=== PATIENT | male | born 1995 | race Two or more races ===

== ENCOUNTER 2017-01-20 03:04 | Emergency (ER) | payer SELFPAY ==
[~2017-01-20] VITALS: Ht 167.6 cm; Wt 90.7 kg
[2017-01-20] MEDS ORDERED: SODIUM CHLORIDE 0.9% 1,000 ML IVB ONE (03:39)
[2017-01-20 03:53] LABS: Basophils # (auto) 0.1 uL; Basophils % (auto) 0.5 % (0.0-2.0); CONDITION Y; Eosinophils # (auto) 0 uL; Eosinophils % (auto) 0.1 % (0.0-7.0); Hematocrit 45.3 % (41.0-53.0); Hemoglobin 15.7 g/dL (13.5-17.5); Lymphocytes % (auto) 15.9 % (10.0-50.0); Mean Corpuscular Hemoglobin 30.8 pg (28.0-32.0); Mean Corpuscular Hgb Conc. 34.6 g/dL (32.0-36.0); Mean Corpuscular Volume 89.1 fL (80.0-100.0); Mean Platelet Volume 7.6 fL (7.4-10.4); Monocytes # (auto) 0.6 uL; Monocytes % (auto) 4.5 % (0.0-12.0); Platelet Count (auto) 321 10^3/uL (140-450); Red Cell Distribution Width 12.9 % (11.6-16.0); White Blood Cell 12.7 10^3/uL (4.4-10.8)
[2017-01-20 04:07] LABS: Albumin 4.3 g/dL (3.4-5.0); BUN/Creatinine Ratio 14.6; Calcium 8.3 mg/dL (8.5-10.1); Potassium 3.4 mmol/L (3.5-5.1); Salicylate < 1.7 mg/dL (2.8-20.0)
[2017-01-20 04:08] LABS: Bilirubin, Total 0.4 mg/dL (0.2-1.0); Total Protein 7.9 g/dL (6.4-8.2)
[2017-01-20 04:12] LABS: Acetaminophen < 2.0 ug/mL (10-30)
[2017-01-20 04:25] LABS: Urine Bilirubin Negative (Negative); Urine Blood TRACE /uL (Negative); Urine Color Colorless (Yellow); Urine Glucose Normal (Normal); Urine Ketone Negative (Negative); Urine Nitrite Negative (Negative); Urine RBC 1 /hpf (0 - 3); Urine Urobilinogen Normal (Negative)
[2017-01-20 07:46] VITALS: BP 127/77
== END 2017-01-20 09:23 | disposition home or self-care (01) ==
LOC: EDBD 03:04 → ER 03:05
DX: F10.120 Alcohol abuse with intoxication, uncomplicated (principal)
CPT/HCPCS: 36415; 70450; 80053; 80307; 80320; 80329; 81001; 82962; 85025; 96360

== ENCOUNTER 2018-03-11 10:47 | Emergency (ER) | payer SELFPAY ==
[~2018-03-11] VITALS: Ht 177.8 cm; Wt 86.2 kg
[2018-03-11 11:00] VITALS: BP 106/59
[2018-03-11 12:03] LABS: Alcohol, Urine < 3.0 mg/dL (0-5); Amphetamine Screen, Urine NEGATIVE (NEGATIVE); Barbiturate Scree,Urine NEGATIVE (NEGATIVE); Benzodiazephine Screen, Urine NEGATIVE (NEGATIVE); Cannabinoid Screen, Urine POSITIVE (NEGATIVE); Cocaine Screen, Urine NEGATIVE (NEGATIVE); Opiate Scree,Urine NEGATIVE (NEGATIVE); Phencyclidine Screen, Urine NEGATIVE (NEGATIVE)
== END 2018-03-11 12:09 | disposition home or self-care (01) ==
LOC: ER 10:47
DX: F41.9 Anxiety disorder, unspecified (principal)
CPT/HCPCS: 80307

== ENCOUNTER 2019-03-09 19:56 | Emergency (ER) | payer MEDICAID ==
[~2019-03-09] VITALS: Ht 177.8 cm; Wt 99.8 kg
[2019-03-09 20:02] VITALS: BP 139/73
[2019-03-09] MEDS ORDERED: IOHEXOL 300 MG/ML 100ML BOTTLE IJ ONE (20:12)
[2019-03-09] MEDS ORDERED: fentaNYL CITRATE 100 MCG/2 ML VL IV ONE (20:15)
[2019-03-09 20:45] LABS: Basophils # (auto) 0.2 uL; Eosinophils # (auto) 0.3 uL; Hemoglobin 16.4 g/dL (13.5-17.5); Lymphocytes # (auto) 8.1 uL; Lymphocytes % (auto) 49.3 % (10.0-50.0); Mean Corpuscular Hemoglobin 30.5 pg (28.0-32.0); Mean Corpuscular Hgb Conc. 32.7 g/dL (32.0-36.0); Mean Corpuscular Volume 93.2 fL (80.0-100.0); Monocytes # (auto) 1.2 uL; Neutrophils # (auto) 6.7 uL; Neutrophils % (auto) 40.7 % (37.0-80.0); Nucleated Red Blood Cells % 0.1 %; Platelet Count (auto) 361 10^3/uL (140-450); Red Blood Cells 5.36 10^6/uL (4.5-5.90); Red Cell Distribution Width 13.5 % (11.8-14.3); White Blood Cell 16.5 10^3/uL (4.4-10.8)
[2019-03-09 20:47] LABS: INR 0.95 (0.9-1.15); Partial Thromboplastin Time 24.7 sec (23.64-32.05)
[2019-03-09 20:52] LABS: Anion Gap 32 (5-15); Blood Urea Nitrogen 14 mg/dL (7-18); Calcium 9.3 mg/dL (8.5-10.1); Chloride 103 mmol/L (98-107); Glucose 163 mg/dL (74-106); Sodium 142 mmol/L (136-145)
[2019-03-09 20:56] LABS: Alanine Aminotransferase 75 U/L (16-61); Alkaline Phosphatase 80 U/L (45-117); Aspartate Aminotransferase 35 U/L (15-37); BUN/Creatinine Ratio 9.7; Bilirubin, Total 0.5 mg/dL (0.2-1.0); GFR African American 76 mL/min; GFR Non-African American 63 mL/min; Total Protein 8.8 g/dL (6.4-8.2)
[2019-03-09 21:10] LABS: Blood Alcohol < 3.0 mg/dL (0-5)
[2019-03-09 21:12] LABS: Carbon Dioxide 7 mmol/L (21-32)
[2019-03-09] MEDS ORDERED: SODIUM CHLORIDE 0.9% 1,000 ML IV ONE (21:30)
[2019-03-09 22:22] LABS: Calcium 8.6 mg/dL (8.5-10.1); Potassium 3.9 mmol/L (3.5-5.1)
[2019-03-09] MEDS ORDERED: KETOROLAC TROMETH 30 MG/ML 1ML VIAL IV ONE (22:45)
[2019-03-09] MEDS ORDERED: cefTRIAXone 1GM/50ML D5W 50 ML IV ONE (22:45)
[2019-03-09] MEDS ORDERED: TETANUS IMMUNE GLOBULIN 250 UNIT/ML SYRG IM ONE (22:45)
[2019-03-09] MEDS ORDERED: TETANUS-DIPTH-ACEL PERTUSSIS 0.5ML SYRG IM ONE (23:30)
[2019-03-10 00:35] LABS: Urine Bacteria NONE SEEN /hpf (None Seen); Urine Blood Negative /uL (Negative); Urine Specific Gravity 1.048 (1.001-1.035); Urine WBC 1 /hpf (0 - 3)
[2019-03-10 00:39] LABS: Alcohol, Urine < 3.0 mg/dL (0-5); Amphetamine Screen, Urine NEGATIVE (NEGATIVE); Barbiturate Scree,Urine NEGATIVE (NEGATIVE); Benzodiazephine Screen, Urine NEGATIVE (NEGATIVE); Cannabinoid Screen, Urine POSITIVE (NEGATIVE); Cocaine Screen, Urine NEGATIVE (NEGATIVE); Phencyclidine Screen, Urine NEGATIVE (NEGATIVE)
[2019-03-10 00:48] LABS: Opiate Scree,Urine NEGATIVE (NEGATIVE)
== END 2019-03-09 23:37 | disposition home or self-care (01) ==
LOC: ER 19:56
DX: S21.211A Laceration without foreign body of right back wall of thorax without penetration into thoracic cavity, initial encounter (principal); S21.111A Laceration without foreign body of right front wall of thorax without penetration into thoracic cavity, initial encounter; E86.0 Dehydration; E87.8 Other disorders of electrolyte and fluid balance, not elsewhere classified; X58.XXXA Exposure to other specified factors, initial encounter; Y93.89 Activity, other specified; Y92.89 Other specified places as the place of occurrence of the external cause; Y99.8 Other external cause status
CPT/HCPCS: 36415; 71260; 74177; 80048; 80053; 80307; 80320; 81001; 85025; 85610; 85730; 86850; 86900; 86901; 90471; 90715; 96361; 96365; 96375; 99284; J0696; J1885; J3010; Q9967